=== PATIENT | male | born 1945 | race Caucasian/White ===

== ENCOUNTER 2021-12-17 07:38 | Outpatient (CLI) | payer MEDICARE ==
[2021-12-17] MEDS ORDERED: Iopamidol 300 61% 100 ML VIAL FS ONE (09:33)
== END 2021-12-17 07:39 | disposition home or self-care (01) ==
LOC: CSHCT 07:38
PROVIDERS: ATTEND Urology
DX: Z12.2 Encounter for screening for malignant neoplasm of respiratory organs (principal); Z87.891 Personal history of nicotine dependence; C67.1 Malignant neoplasm of dome of bladder; N20.0 Calculus of kidney; N18.31 Chronic kidney disease, stage 3a; N28.1 Cyst of kidney, acquired; Z90.6 Acquired absence of other parts of urinary tract; I71.40 Abdominal aortic aneurysm, without rupture, unspecified; Z90.49 Acquired absence of other specified parts of digestive tract; Z90.79 Acquired absence of other genital organ(s); K57.30 Diverticulosis of large intestine without perforation or abscess without bleeding
CPT/HCPCS: 71271; 74178; 82565; Q9967

== ENCOUNTER 2023-04-24 14:00 | Outpatient (CLI) | payer MEDICARE | END 2023-04-24 14:01 | disposition home or self-care (01) | LOC: CSHCT 14:00 | PROVIDERS: ATTEND Internal Medicine | DX: R06.09 Other forms of dyspnea (principal) | CPT/HCPCS: 71250; 94060; 94618; 94664; 94726; 94729 ==